=== PATIENT | female | born 1985 | race Caucasian/White ===

== ENCOUNTER 2017-04-27 13:45 | Emergency (ER) | payer OTHER ==
[~2017-04-27] VITALS: Ht 167.6 cm; Wt 70.8 kg
[2017-04-27 15:27] VITALS: BP 113/70
--- NOTE | 2017-04-27 17:03 | NUR ---
Patient to bed 01.
--- NOTE | 2017-04-27 17:03 | NUR ---
Kecia eason in [facility] - 04/27/17 at 1801 by SURI Patient to bed 01.
--- NOTE | 2017-04-27 17:10 | NUR ---
PATIENT BIB WITH C/O RT FOOT PAIN 7/10 ON REST;DENIES INJURY;HX OF ASTHMA RX OF ALBUTEROL, ADVAIR .DENIES N/V/D; SKIN IS PINK/WARM/DRY; AAOX4 ; LUNGS CLEAR BL; HR EVEN AND REGULAR; PT DENIES ANY FEVER, CP, SOB, OR COUGH AT THIS TIME;PATIENT POSITIONED FOR COMFORT; HOB ELEVATED; BEDRAILS UP X2; BED DOWN. ER MD MADE AWARE OF PT STATUS.
--- NOTE | 2017-04-27 17:13 | NUR ---
Dr. James evaluating patient at bedside.
[2017-04-27 19:09] VITALS: BP 113/71
== END 2017-04-27 17:27 | disposition home or self-care (01) ==
LOC: MED 13:45
DX: S93.491A Sprain of other ligament of right ankle, initial encounter (principal); Z88.8 Allergy status to other drugs, medicaments and biological substances; X58.XXXA Exposure to other specified factors, initial encounter; Y93.89 Activity, other specified; Y92.89 Other specified places as the place of occurrence of the external cause; Y99.8 Other external cause status
CPT/HCPCS: 73610; 73630; 99284